=== PATIENT | male | born 1995 | race African-American/Black ===

== ENCOUNTER 2020-01-29 12:45 | Emergency (ER) | payer SELFPAY ==
[~2020-01-29] VITALS: Ht 180.3 cm; Wt 101.3 kg
[~2020-01-29 12:45] MED LIST: BETA15CR5 TP
--- NOTE | 2020-01-29 13:21 | PHYS DOC ---
Past History Past Medical History: Asthma Past Surgical History: No Surgical History Additional Past Surgical Histo: right knee surgery Alcohol Use: Rarely Drug Use: None General Adult EDM: Chief Complaint: PENIS PROBLEM HPI: HPI: 24-year-old male presents with difficulty with erection. The patient is able to get an erection, but he is unable to maintain his erection throughout intercourse. He is in a monogamous relationship. He has been having this problem for about 2 months. He denies taking supplements or any other drugs. Takes a daily multivitamin. He has no other complaints at this time. He denies urinary frequency or dysuria. He is not concerned about an STD. Review of Systems: Review of Systems: Constitutional: Denies fever or chills Eyes: Denies change in visual acuity HENT: Denies nasal congestion or sore throat Respiratory: Denies cough or shortness of breath Cardiovascular: Denies chest pain or edema GI: Denies abdominal pain, nausea, vomiting, bloody stools or diarrhea : Denies dysuria Musculoskeletal: Denies back pain or joint pain Integument: Denies rash Neurologic: Denies headache, focal weakness or sensory changes Endocrine: Denies polyuria or polydipsia Lymphatic: Denies swollen glands Psychiatric: Denies depression or anxiety Heart Score: Risk Factors: Risk Factors: DM, Current or recent (<one month) smoker, HTN, HLP, family history of CAD, obesity. Risk Scores: Score 0 - 3: 2.5% MACE over next 6 weeks - Discharge Home Score 4 - 6: 20.3% MACE over next 6 weeks - Admit for Clinical Observation Score 7 - 10: 72.7% MACE over next 6 weeks - Early Invasive Strategies Allergies: Allergies: Allergies Coded Allergies Type Severity Reaction Last Updated Verified No Known Drug Allergies 07/26/15 No Physical Exam: PE: Constitutional: Well developed, well nourished, no acute distress, non-toxic appearance. [] HENT: Normocephalic, atraumatic, bilateral external ears normal, oropharynx moist, no oral exudates, nose normal. [] Eyes: PERRLA, EOMI, conjunctiva normal, no discharge. [] Neck: Normal range of motion, no tenderness, supple, no stridor. [] Cardiovascular:Heart rate regular rhythm, no murmur [] Lungs & Thorax: Bilateral breath sounds clear to auscultation [] Abdomen: Bowel sounds normal, soft, no tenderness, no masses, no pulsatile masses. [] Skin: Warm, dry, no erythema, no rash. [] Back: No tenderness, no CVA tenderness. [] Extremities: No tenderness, no cyanosis, no clubbing, ROM intact, no edema. [] Neurologic: Alert and oriented X 3, normal motor function, normal sensory function, no focal deficits noted. [] Psychologic: Affect normal, judgement normal, mood normal. [] Current Patient Data: Vital Signs: Vital Signs Date Time Temp Pulse Resp B/P (MAP) Pulse Ox O2 Delivery O2 Flow Rate FiO2 01/29/20 12:45 98.1 59 16 137/87 (104) 99 Room Air EKG: EKG: [] Radiology/Procedures: Radiology/Procedures: [] Course & Med Decision Making: Course & Med Decision Making Pertinent Labs and Imaging studies reviewed. (See chart for details) The patient's urinalysis is negative for infection. GC chlamydia is pending. I have advised the patient to make an appoint with urology for further evaluation. He is stable for discharge at this time. [] Dragon Disclaimer: Dragon Disclaimer: This electronic medical record was generated, in whole or in part, using a voice recognition dictation system. Departure Departure: Impression: Primary Impression: Erectile dysfunction Qualified Codes: N52.9 - Male erectile dysfunction, unspecified Disposition: 01 DC HOME SELF CARE/HOMELESS Condition: STABLE Referrals: PCP,NO (PCP) Additional Instructions: Please make an appointment with the urologist for further follow-up of your symptoms and to discuss treatment options. CORNELL MEYER DO Jan 29, 2020 13:21
[2020-01-29 14:15] LABS: AMORPHOUS SEDIMENT,UR PRESENT /HPF; BACTERIA,URINE 0 /HPF (0-FEW); BILIRUBIN,URINE NEG (NEG); CLARITY,URINE HAZY; COLOR,URINE YELLOW; GLUCOSE,URINE NEG (NEG); NITRITE,URINE NEG (NEG); RBC,URINE OCC /HPF (0-2); SQUAMOUS EPITHELIAL CELL,UR FEW /LPF
[2020-01-29 14:35] VITALS: BP 137/79
== END 2020-01-29 14:40 | disposition home or self-care (01) ==
LOC: ER 12:45
DX: N52.9 Male erectile dysfunction, unspecified (principal); J45.909 Unspecified asthma, uncomplicated
CPT/HCPCS: 36415; 81001; 87086; 87491; 87591; 99283